=== PATIENT | male | born 1990 | race Caucasian/White ===

== ENCOUNTER 2017-06-20 18:36 | Emergency (ER) | payer BC ==
[~2017-06-20] VITALS: Ht 177.8 cm; Wt 117.9 kg
[~2017-06-20 18:36] MED LIST: PRED20TA6 PO
--- NOTE | 2017-06-20 18:39 | ER Report ---
History and Physical Time Seen By MD: 18:38 HPI/ROS CHIEF COMPLAINT: Ill, cough HISTORY OF PRESENT ILLNESS: 27-year-old male smoker presents a to the ER with symptoms for 2 weeks of mild viral URI symptoms which got progressively worse. Patient states it started in his head. He had sinus congestion and ear pain. His progress to clear rhinitis down through throat and now and wished chest. He notes a productive cough of whitish to yellowish sputum for approximately 4 days. He denies fever or chills. He notes a history of allergies, but denies asthma. He is now here because he is having significant dyspnea on exertion. He is a buffing machine operator. Patient denies chest pain or shortness of breath. He notes several coughing fits throughout the day. REVIEW OF SYSTEMS: Respiratory: As above Cardiovascular: No chest pain, no palpitations. Gastrointestinal: No vomiting, no abdominal pain. Musculoskeletal: No back pain. Allergies: Coded Allergies: No Known Drug Allergies (Unverified , 06/20/17) Home Meds Active Scripts Prednisone (PREDNISONE) 20 Mg Tablet, 20 MG PO QDAY for reduce lung inflammation , #5 TAB Prov:OCTAVIANO ALFARO DO 06/20/17 Cefuroxime Axetil (CEFUROXIME) 500 Mg Tablet, 500 MG PO BID for infection, #14 TAB Prov:OCTAVIANO ALFARO DO 06/20/17 Discontinued Scripts Prednisone (PREDNISONE) 20 Mg Tablet, 40 MG PO QDAY for 7 Days Prov:ES CUEVAS MD 11/10/14 Hx Smoking: No Constitutional Vital Sign - Last 24 Hours 06/20/17 18:40 Temp 98.4 Pulse 106 Resp 20 B/P (MAP) 137/98 Pulse Ox 100 O2 Delivery Room Air Physical Exam General Appearance: The patient is alert, has no immediate need for airway protection and no current signs of toxicity. Vital signs stable, afebrile, pulse ox normal HEENT: Pupils equal and round no injection. Bilateral tympanic membranes are bulging with fluid behind them. They are mildly erythematous. Respiratory: Chest is non tender, lungs are clear to auscultation. No wheezing or rails Cardiac: regular rate and rhythm Gastrointestinal: Abdomen is soft and non tender, no masses, bowel sounds normal. Musculoskeletal: Neck: Neck is supple and non tender. No lymphadenopathy, but tenderness on palpation Extremities have full range of motion and are non tender. No edema, no calf tenderness Skin: No rashes or lesions. DIFFERENTIAL DIAGNOSIS: After history and physical exam differential diagnosis was considered for cough, bronchitis, URI, pneumonia, sinusitis, otitis media, acute pharyngitis Medical Decision Making ED Course/Re-evaluation ED Course Patient was admitted to an examination room. H&P was done. The dental diagnoses was considered. Patient with bilateral eustachian tube dysfunction. Possibly early otitis media bilaterally. He's had significant sinus drainage but primarily clear. He has acute erythematous throat with tonsillar hypertrophy. On chest examination. He has clear lung vega without wheezing or rails. His pulse ox is normal at 96% on room air. He has a productive cough of yellow sputum. I will cover him with antibiotics Ceftin 500 mg by mouth twice a day for potential ear infection and sinus infection as well as early bronchitis. Patient was given low-dose prednisone 20 mg for 5 days to reduce his mucus production and reduce inflammation in the eustachian tubes to help drain. He is advised DayQuil and NyQuil. Decision to Disposition Date: Jun 20, 2017 Decision to Disposition Time: 18:53 Depart Departure Latest Vital Signs Vital Signs Date Time Temp Pulse Resp B/P (MAP) Pulse Ox O2 Delivery O2 Flow Rate FiO2 06/20/17 18:40 98.4 106 20 137/98 100 Room Air Impression: Primary Impression: Upper respiratory infection Additional Impressions: Allergic rhinitis Tobacco dependence syndrome Condition: Improved Disposition: HOME OR SELF-CARE Referrals: GILLIAN ROMERO MD [place] Prednisone (PREDNISONE) 20 Mg Tablet 20 MG PO QDAY for reduce lung inflammation, #5 TAB Prov: OCTAVIANO ALFARO DO 06/20/17 Cefuroxime Axetil (CEFUROXIME) 500 Mg Tablet 500 MG PO BID for infection, #14 TAB Prov: OCTAVIANO ALFARO DO 06/20/17 Patient Instructions: Upper Respiratory Infection (ED) Additional Instructions: Take ibuprofen 200 mg 2-3 tablets 3 times a day with food Use DayQuil in the morning, afternoon and NyQuil at bedtime Follow-up with your primary care if unimproved in 3-5 days or go to the physician listed on your paperwork Problem Qualifiers Primary Impression: Upper respiratory infection URI type: unspecified URI Qualified Codes: J06.9 - Acute upper respiratory infection, unspecified Additional Impressions: Allergic rhinitis Allergic rhinitis trigger: unspecified Allergic rhinitis seasonality: seasonal Qualified Codes: J30.2 - Other seasonal allergic rhinitis OCTAVIANO ALFARO DO Jun 20, 2017 18:39
[2017-06-20] MEDS ORDERED: PRED20TA6 PO (18:55)
[2017-06-20] MEDS ORDERED: CEFU500T10 PO (18:55)
[2017-06-20 19:03] VITALS: BP 123/90
== END 2017-06-20 19:05 | disposition home or self-care (01) ==
LOC: ER 18:47
DX: J30.2 Other seasonal allergic rhinitis (principal)
CPT/HCPCS: 99284

== ENCOUNTER 2017-09-25 00:49 | Emergency (ER) | payer BC ==
[~2017-09-25 00:49] MED LIST changes: +CEFU500T10 PO
[2017-09-25 00:50] VITALS: BP 140/77
--- NOTE | 2017-09-25 01:07 | ER Report ---
History and Physical Time Seen By MD: 00:56 Hx. of Stated Complaint: PT HERE FOR PRISON CLEARANCE. PT INTOXICATED HPI/ROS CHIEF COMPLAINT: longterm clearance HISTORY OF PRESENT ILLNESS: This is a 27 year old male. He was brought to the ER by the [place] [employer] for alcohol intoxication and longterm clearance. He will not answer most of my questions and refuses to let me examine him. He says that the police took him to the ground, and has a little pain, but will not say where. He denies any other problems and tells me to get the f___ out of here. REVIEW OF SYSTEMS: unable to obtain. Allergies: Coded Allergies: No Known Drug Allergies (Unverified , 06/20/17) Home Meds Active Scripts Prednisone (PREDNISONE) 20 Mg Tablet, 20 MG PO QDAY for reduce lung inflammation , #5 TAB Prov:OCTAVIANO ALFARO DO 06/20/17 Cefuroxime Axetil (CEFUROXIME) 500 Mg Tablet, 500 MG PO BID for infection, #14 TAB Prov:OCTAVIANO ALFARO DO 06/20/17 Unable To Obtain Past Medical: Unable to Obtain/Update Reviewed Nurses Notes: Yes Hx Smoking: No Hx Substance Use Disorder: No Hx Alcohol Use: Yes ([employer]) Constitutional Vital Sign - Last 24 Hours 09/25/17 00:50 Temp 98.6 Pulse 136 Resp 16 B/P (MAP) 140/77 Pulse Ox 93 O2 Delivery Room Air Physical Exam General Appearance: The patient is alert, has no immediate need for airway protection, is intoxicated Eyes: Pupils equal and round, has scleral injection. ENT: Normal oral mucosa. Moist mucous membranes. Respiratory: Breathing easily. Talking in complete sentences. Skin: No exposed lesions or injuries noted. Neuro: Intoxicated, moving all extremities without deficits. Unable to perform other exam DIFFERENTIAL DIAGNOSIS: After history and physical exam differential diagnosis was considered for a patient with alcohol intoxication. Medical Decision Making ED Course/Re-evaluation ED Course I don't see any obvious injuries, and vital signs are stable. However, cannot do a full evaluation at this time. Nothing that would make me feel concerned at this time. Able to be discharged to longterm at this time. Decision to Disposition Date: September 25, 2017 Decision to Disposition Time: 01:05 Depart Departure Latest Vital Signs Vital Signs Date Time Temp Pulse Resp B/P (MAP) Pulse Ox O2 Delivery O2 Flow Rate FiO2 09/25/17 00:50 98.6 136 16 140/77 93 Room Air Impression: Primary Impression: Alcohol intoxication Condition: Condition Unchanged Disposition: [facility] TO PRISON/CORRECTIONAL F Patient Instructions: Alcohol Intoxication (ED) Problem Qualifiers Primary Impression: Alcohol intoxication Complication of substance-induced condition: uncomplicated Qualified Codes: F10.920 - Alcohol use, unspecified with intoxication, uncomplicated PANCHITO MONTELONGO MD September 25, 2017 01:07
== END 2017-09-25 01:10 ==
LOC: ER 00:52
DX: F10.920 Alcohol use, unspecified with intoxication, uncomplicated (principal)
CPT/HCPCS: 99282

== ENCOUNTER 2018-07-13 01:06 | Emergency (ER) | payer BC ==
[2018-07-13 01:07] VITALS: BP 138/77
--- NOTE | 2018-07-13 01:09 | ER Report ---
History and Physical Time Seen By MD: 01:06 HPI/ROS CHIEF COMPLAINT: Usp clearance HISTORY OF PRESENT ILLNESS: 28-year-old male presents with police officers for longterm clearance. Patient voices no complaints. Patient denies any past medical history. Patient admits to alcohol ingestion. REVIEW OF SYSTEMS: Respiratory: No cough, no dyspnea. Cardiovascular: No chest pain, no palpitations. Gastrointestinal: No vomiting, no abdominal pain. Musculoskeletal: No back pain. Allergies: Coded Allergies: No Known Drug Allergies (Unverified , 07/13/18) Home Meds Active Scripts Prednisone (PREDNISONE) 20 Mg Tablet, 20 MG PO QDAY for reduce lung inflammation, #5 TAB Prov:OCTAVIANO ALFARO DO 06/20/17 Cefuroxime Axetil (CEFUROXIME) 500 Mg Tablet, 500 MG PO BID for infection, #14 TAB Prov:OCTAVIANO ALFARO DO 06/20/17 Reviewed Nurses Notes: Yes Old Medical Records Reviewed: Yes Hx Smoking: No Hx Substance Use Disorder: No Hx Alcohol Use: Yes ([employer]) Constitutional Vital Sign - Last 24 Hours 07/13/18 01:07 Temp 97.9 Pulse 104 Resp 16 B/P (MAP) 138/77 Pulse Ox 92 O2 Delivery Room Air Physical Exam General Appearance: The patient is alert, has no immediate need for airway protection and no current signs of toxicity. Palpation of the head and neck reveals no tenderness or trauma HEENT: Pupils equal and round no injection. Oropharynx without dental trauma Respiratory: Chest is non tender, lungs are clear to auscultation. Chest wall tenderness Cardiac: regular rate and rhythm Gastrointestinal: Abdomen is soft and non tender, no masses, bowel sounds normal. Musculoskeletal: Neck: Neck is supple and non tender. Extremities have full range of motion and are non tender. Skin: No rashes or lesions. DIFFERENTIAL DIAGNOSIS: After history and physical exam differential diagnosis was considered for alcohol intoxication, longterm clearance, polysubstance abuse Medical Decision Making ED Course/Re-evaluation ED Course Patient admitted to an examination room. H&P is done. The differential diagnoses considered. On clinical examination. Patient has no findings. He has no complaints. His vital signs are stable. He is medical cleared for longterm admission. Decision to Disposition Date: Jul 13, 2018 Decision to Disposition Time: 01:08 Depart Departure Latest Vital Signs Vital Signs Date Time Temp Pulse Resp B/P (MAP) Pulse Ox O2 Delivery O2 Flow Rate FiO2 07/13/18 01:07 97.9 104 16 138/77 92 Room Air Impression: Primary Impression: Medical clearance for incarceration Condition: Improved Disposition: [facility] TO SENIOR LIVING/CORRECTIONAL F Patient Instructions: GENERAL ER DISCHARGE INSTRUCTIONS Additional Instructions: Patient medically cleared for longterm admission OCTAVIANO ALFARO DO Jul 13, 2018 01:09
== END 2018-07-13 01:15 ==
LOC: ER 01:10
DX: F10.920 Alcohol use, unspecified with intoxication, uncomplicated (principal)
CPT/HCPCS: 99281

== ENCOUNTER 2018-09-28 06:37 | Emergency (ER) | payer BC ==
--- NOTE | 2018-09-28 07:02 | ER Report ---
History and Physical Time Seen By MD: 07:01 Hx. of Stated Complaint: shortness of breath and cough for 2 days. HPI/ROS CHIEF COMPLAINT: Shortness of breath and cough HISTORY OF PRESENT ILLNESS: Patient is a 28-year-old male who admits to no significant past medical history. He states for the past days has had increased shortness breath cough. He feels run down and tired. Denies any fevers or chills. Denies nausea vomiting or abdominal pain. Contact at home. REVIEW OF SYSTEMS: Constitutional: No fever, no chills. Eyes: No discharge. ENT: No sore throat. Cardiovascular: No chest pain, no palpitations. Respiratory: Cough, shortness of breath, hemoptysis Gastrointestinal: No abdominal pain, no vomiting. Genitourinary: No hematuria. Musculoskeletal: No back pain. Skin: No rashes. Neurological: No headache. Allergies: Coded Allergies: No Known Drug Allergies (Unverified , 07/13/18) Home Meds Discontinued Scripts Prednisone (PREDNISONE) 20 Mg Tablet, 20 MG PO QDAY for reduce lung inflammation, #5 TAB Prov:OCTAVIANO ALFARO DO 06/20/17 Cefuroxime Axetil (CEFUROXIME) 500 Mg Tablet, 500 MG PO BID for infection, #14 TAB Prov:OCTAVIANO ALFARO DO 06/20/17 Past Medical/Surgical History He denies any significant past medical history Hx Smoking: No Hx Substance Use Disorder: No Hx Alcohol Use: Yes ([employer]) Constitutional Vital Sign - Last 24 Hours 09/28/18 06:43 Pulse 92 Resp 16 B/P (MAP) 136/91 Pulse Ox 93 O2 Delivery Room Air Physical Exam General Appearance: The patient is alert, has no immediate need for airway protection and no signs of toxicity. Eyes: Pupils equal and round no pallor or injection. ENT, Mouth: Mucous membranes are moist. Respiratory: There are no retractions, lungs are noted for expiratory and inspiratory wheezing. Cardiovascular: Regular rate and rhythm. Gastrointestinal: Abdomen is soft and non tender, no masses, bowel sounds normal. Neurological: Awake and alert Skin: Warm and dry, no rashes. Musculoskeletal: Neck is supple non tender. Extremities are nontender, nonswollen and have full range of motion. Medical Decision Making EKG/Imaging Imaging FACILITY: [facility] PATIENT NAME: Sunil Arora : 1990 MR: [id number] V: [id number] EXAM DATE: [id number] ORDERING PHYSICIAN: LEON HEARN TECHNOLOGIST: Location: [facility] Patient: Sunil Arora : 1990 Visit/Account:[id number] Date of Sevice: 09/28/2018 CHEST PA LAT INDICATION: cough COMPARISON: None available FINDINGS: Heart size within normal limits. There is no focal infiltrate or lobar consolidation. There is no pneumothorax or pleural effusion. IMPRESSION: 1. No acute cardiopulmonary process. Report Dictated By: Danny Payton at 09/28/2018 7:57 AM Report E-Signed By: Danny Payton at 09/28/2018 7:58 AM WSN:[id number] ED Course/Re-evaluation ED Course 09/28/2018 8:10:00 am chest x-ray negative for acute process. Patient improved with albuterol nebulizer treatment. We'll discharge on 4 more days of prednisone and an inhaler. Decision to Disposition Date: September 28, 2018 Decision to Disposition Time: 08:10 Depart Departure Latest Vital Signs Vital Signs Date Time Temp Pulse Resp B/P (MAP) Pulse Ox O2 Delivery O2 Flow Rate FiO2 09/28/18 06:43 92 16 136/91 93 Room Air Impression: Primary Impression: Reactive airway disease Condition: Improved Disposition: HOME OR SELF-CARE New Scripts Prednisone (PREDNISONE) 20 Mg Tablet 60 MG PO QDAY, #12 TAB 0 Refills Next dose on 09/29/18 Prov: LEON HEARN MD 09/28/18 Departure Forms: ER Transition Record, Medications Reconciliation, Off Work/School Form, School or Work Release?: Work Number of days to be released: 2 Patient Portal Information Patient Instructions: Reactive Airways Disease (ED) Problem Qualifiers Primary Impression: Reactive airway disease Asthma severity: mild Asthma persistence: intermittent Asthma complication type: with acute exacerbation Qualified Codes: J45.21 - Mild intermittent asthma with (acute) exacerbation LEON HEARN MD September 28, 2018 07:01
[2018-09-28] MEDS ORDERED: ALBUTEROL/IPRATROPIUM 3 ML NEB NEB ONE (07:10)
[2018-09-28] MEDS ORDERED: predniSONE 20 MG TAB PO ONE (07:10)
--- NOTE | 2018-09-28 08:01 | RADIOLOGY IMAGING REPORT ---
FACILITY: [facility] PATIENT NAME: Sunil Arora : 1990 MR: [id number] V: [id number] EXAM DATE: ORDERING PHYSICIAN: LEON HEARN TECHNOLOGIST: Location: [facility] Patient: Sunil Arora : 1990 Visit/Account:[id number] Date of Sevice: 09/28/2018 CHEST PA LAT INDICATION: cough COMPARISON: None available FINDINGS: Heart size within normal limits. There is no focal infiltrate or lobar consolidation. There is no pneumothorax or pleural effusion. IMPRESSION: 1. No acute cardiopulmonary process. Report Dictated By: Danny Payton at 09/28/2018 7:57 AM Report E-Signed By: Danny Payton at 09/28/2018 7:58 AM WSN:[id number]
[2018-09-28] MEDS ORDERED: ALBUTEROL 8 GM INHALER INH ONE (08:10)
[2018-09-28] MEDS ORDERED: PRED20TA6 PO (08:13)
[2018-09-28 08:22] VITALS: BP 136/97
== END 2018-09-28 08:35 | disposition home or self-care (01) ==
LOC: ER 07:12
DX: J45.21 Mild intermittent asthma with (acute) exacerbation (principal)
CPT/HCPCS: 71046; 94640; 99283; J7512; J7620

== ENCOUNTER 2018-10-02 06:40 | Emergency (ER) | payer BC ==
[2018-10-02] MEDS ORDERED: ALBU8.5H IH (06:51)
[2018-10-02] MEDS ORDERED: ALBUTEROL/IPRATROPIUM 3 ML NEB NEB ONE (07:20)
--- NOTE | 2018-10-02 07:25 | ER Report ---
History and Physical Time Seen By MD: 07:05 Hx. of Stated Complaint: PT SEEN HERE SATURDAY FOR BREATHING DIFFICULTY, STATES IS NO BETTER, INHALER NOT HELPING TODAY HPI/ROS CHIEF COMPLAINT: Difficulty breathing HISTORY OF PRESENT ILLNESS: 28-year-old male presents with difficulty breathing, coughing up sputum that is tinged with blood. He states he was seen here 2 days ago and was diagnosed with presumptive asthma, was given an inhaler and prednisone burst. He took his last dose of 60 mg prednisone this morning, used inhaler last at zero 600. He states the symptoms are not worse have been ongoing. He states that one week ago he developed URI type symptoms which progressed to cough productive with whitish and clear sputum. He has occasional chills. He has no dyspnea at rest. Dyspnea is worse on exertion and climbing stairs. He has no chest pain or pressure. He has had no recent travel, no new leg pain or swelling, no history of DVT or PE. He has no history of asthma. He admits to one and a half pack a day tobacco use since age 15. He has had similar symptoms one year ago. REVIEW OF SYSTEMS: Constitutional: above Eyes: No discharge. ENT: mild sore throat Cardiovascular: No chest pain, no palpitations. Respiratory: above Gastrointestinal: No abdominal pain, no vomiting. Genitourinary: no dysuria Musculoskeletal: No back pain. Skin: No rashes. Neurological: No headache. Remainder of the 14 system rev: Yes Allergies: Coded Allergies: No Known Drug Allergies (Unverified , 07/13/18) Home Meds Active Scripts Prednisone 10 Mg Tab (PREDNISONE 10 MG TAB) 10 Mg Tablet, 10 MG PO QDAY, #30 TAB Take 4 tabs daily for 3 days, then 3 tabs for 3 days, then 2 tabs for 3 days, then 1 tab for 3 days. Prov:LEON GRANADO MD 10/02/18 Prednisone (PREDNISONE) 20 Mg Tablet, 60 MG PO QDAY, #12 TAB 0 Refills Next dose on 09/29/18 Prov:LEON HEARN MD 09/28/18 Reported Medications Albuterol Sulfate 90 Mcg/Act (PROAIR HFA 90 MCG/ACT) 8.5 Gm Hfa.aer.ad, 1-2 PUFF IH 3-4XD, INHALER 10/02/18 Discontinued Scripts Prednisone (PREDNISONE) 20 Mg Tablet, 20 MG PO QDAY for reduce lung inf lammation, #5 TAB Prov:OCTAVIANO ALFARO DO 06/20/17 Cefuroxime Axetil (CEFUROXIME) 500 Mg Tablet, 500 MG PO BID for infection, #14 TAB Prov:OCTAVIANO ALFARO DO 06/20/17 Reviewed Nurses Notes: Yes Old Medical Records Reviewed: Yes Hx Smoking: No Hx Substance Use Disorder: No Hx Alcohol Use: Yes ([employer]) Constitutional Vital Sign - Last 24 Hours 10/02/18 10/02/18 10/02/18 10/02/18 06:43 06:44 07:10 07:24 Temp 98.6 Pulse 101 100 Resp 20 B/P (MAP) 136/80 (98) 136/80 Pulse Ox 92 92 93 O2 Delivery Room Air Room Air 10/02/18 10/02/18 10/02/18 07:24 07:30 07:30 Pulse 92 90 Resp 16 16 B/P (MAP) 105/69 (81) Physical Exam General Appearance: The patient is alert, has no immediate need for airway protection and no signs of toxicity. Eyes: Pupils equal and round no pallor or injection. ENT, Mouth: Mucous membranes are moist. Respiratory: bilateral expiratory wheezing Cardiovascular: borderline tachycardia Neurological: alert, moves all ext Skin: Warm and dry, no rashes. Musculoskeletal: Extremities are nontender, nonswollen and have full range of motion. DIFFERENTIAL DIAGNOSIS: After history and physical exam differential diagnosis was considered for shortness of breath including but not limited to pulmonary infectious process, COPD, asthma, pulmonary embolus and congestive heart failure. Medical Decision Making ED Course/Re-evaluation ED Course Pt returns with similar presentation to 2 d ago; states he is similar but coughed up sputum with blood today and is concerned. Pt's presentation reviewed from jun 30, as well as 2 d ago; today's presentation is similar and he has exp wheezes throughout lung vega but without acute dyspnea or resp distress. While I considered PE (ana given risk and borderline 02 sat), presentation is much more likely c/w bronchitis and rad due to combination of bronchitis and significant tobacco use; pt responds very well to duoneb with rpt exam showing very minimal wheezing and pt noting he feels significantly improved. After neb his sats are 89-92; this would be expected with combination of afterdrop, his tobacco use, and the altitude. Pt ambulates without difficutly; we extensively discussed importance of quitting tobacco, importance of establishing primary care doctor, of hydration, and strict rtn precautions. Pt understands and agrees to rtn for any concerns. Decision to Disposition Date: October 02, 2018 Decision to Disposition Time: 07:44 Depart Departure Latest Vital Signs Vital Signs Date Time Temp Pulse Resp B/P (MAP) Pulse Ox O2 Delivery O2 Flow Rate FiO2 10/02/18 07:30 105/69 (81) 10/02/18 07:30 90 16 10/02/18 07:24 93 Room Air 10/02/18 06:44 98.6 Impression: Primary Impression: Bronchitis Condition: Improved Disposition: HOME OR SELF-CARE New Scripts Prednisone 10 Mg Tab (PREDNISONE 10 MG TAB) 10 Mg Tablet 10 MG PO QDAY, #30 TAB Take 4 tabs daily for 3 days, then 3 tabs for 3 days, then 2 tabs for 3 days, then 1 tab for 3 days. Prov: LEON GRANADO MD 10/02/18 Departure Forms: ER Transition Record, Medications Reconciliation, Off Work/School Form, School or Work Release?: Work Number of days to be released: 1 Patient Portal Information Patient Instructions: Acute Bronchitis (ED) Additional Instructions: As we discussed, your symptoms are consistent with bronchitis with wheezing, also called reactive airway disease (similar to asthma, but caused by a combination of a viral infection as well as chronic tobacco use). Continue to use inhaler as instructed, as well as the prednisone taper I have prescribed. We discussed rehydrating with dilute gatorade. We also discussed the reason that antibiotics won't help, and the importance of establishing a primary doctor and following up. Return immediately if you feel worse, have more difficulty breathing, chest pain or pressure, or any concerns. LEON GRANADO MD October 02, 2018 07:25
[2018-10-02 07:30] VITALS: BP 105/69
[2018-10-02] MEDS ORDERED: PRED-1 PO (07:47)
== END 2018-10-02 08:00 | disposition home or self-care (01) ==
LOC: ER 07:29
DX: J40 Bronchitis, not specified as acute or chronic (principal)
CPT/HCPCS: 94640; 99283; J7620